=== PATIENT | male | born 1950 | race Caucasian/White ===

== ENCOUNTER → 2017-06-14 | Outpatient (CLI) | payer MEDICARE, OTHER, BC ==
[2017-06-14] MEDS: GADOBUTROL 10 MMOL/10 ML VIAL IV ×2 (11:32)
== END | disposition home or self-care (01) ==
LOC: KCIC MRI 10:41
DX: K76.0 Fatty (change of) liver, not elsewhere classified (principal); D18.09 Hemangioma of other sites
CPT/HCPCS: 74183; A9585

== ENCOUNTER → 2019-03-27 | Day surgery (SDC) | payer MEDICARE, OTHER, BC ==
[~2019-03-27] MED LIST: ALLO300T PO; ASPI-630 PO; ATOR40TA59 PO; ESOM20CA PO; IV RINGERS,LACTATED 1000ML 1,000 ML IV ONE; LIDOCAINE 1%/EPI 1:100,000 20 ML VIAL. INJ ONE; LOSA1TAB19 PO; MELO7.5T29 PO; METF500T16 PO; METO-247 PO; SIMV20TA3 PO; VALS1TAB3 PO
[2019-03-27 09:42] VITALS: BP 150/65
--- NOTE | 2019-03-27 11:05 | PDOC4 ---
Operative Note Operative Note Date: 03/27/2019 Preoperative diagnosis: Left flank lipoma Postoperative diagnosis: Same Procedure: Excision of left flank lipoma Surgeon: Fred Specimen: Left flank lipoma Dictation: Patient is 69-year-old male is complained of enlarging mass in his left flank. Procedure of excision of mass was explained to the patient detail risk benefits were also discussed including bleeding infection alternatives to this procedure also discussed the patient seemed to understand gave both verbal and written consent to have the procedure performed. Patient was taken to the minor his room placed in the left lateral decubitus position area around the mass was prepped and draped usual sterile fashion using ChloraPrep. Area over the mass was injected with 1% lidocaine with epinephrine once this was anesthetized incision was made 15 blade scalpel this carried down through subcutaneous tissue using 15 blade scalpel mass was sharply excised with Metzenbaum scissors mass was 9 x 9 cm appeared to be lipoma. The wound was then closed in 2 layers a deep layer running 3-0 Vicryl and the skin was approximate for septic and a Monocryl Mastisol Steri-Strips and island dressings were applied patient hard procedure well was discharged home in stable condition all sponge instrument needle counts listed as correct estimated blood loss 5 mL EVETTE METZ MD Mar 27, 2019 11:05
--- NOTE | 2019-03-30 17:06 | PATHOLOGY ---
[facility] Accession Number: [id number] . 01 Material submitted: . chest - LEFT CHEST LIPOMA. Modifiers: left . 01 Clinical history: . Left chest lipoma. . 02 Diagnosis: Segment of fibroadipose tissue, left chest: - Lipoma. (JPM:[facility]; 03/30/2019) QMS 03/30/2019 1410 Local . 02 Comment: There is no evidence of malignancy. . 02 Electronically signed: . Ladarius Trujillo MD, Pathologist NPI- [id number] . 01 Gross description: . Received in formalin labeled "Cesar Cortes, left chest lipoma" is an encapsulated yellow-goode lobulated soft tissue mass measuring 9.2 x 7.0 x 3.5 cm. The external surface is inked black. The specimen is sectioned to reveal a yellow-goode homogenous cut surface without hemorrhage or necrosis. [employer] sections are submitted in A1-A5. ([facility] [place]; 03/28/2019) [facility] 03/28/2019 08 Local . 02 Pathologist provided ICD-10: D17.1 . 02 CPT . 780917 Specimen Comment: A courtesy copy of this report has been sent to Specimen Comment: [phone], . Specimen Comment: Report sent to / DR SANDOVAL Performed at: 01 [facility] [address], [place] [id number] MD Noah Hardin MD Phone: [phone] Performed at: 02 [facility] [address] [place], [place] [id number] MD Ladarius Trujillo MD Phone: [phone]
== END ==
LOC: SURG 09:30
PROVIDERS: ATTEND Surgery
DX: D17.1 Benign lipomatous neoplasm of skin and subcutaneous tissue of trunk (principal); I11.9 Hypertensive heart disease without heart failure; E78.00 Pure hypercholesterolemia, unspecified; G47.30 Sleep apnea, unspecified; K21.9 Gastro-esophageal reflux disease without esophagitis; K76.0 Fatty (change of) liver, not elsewhere classified; M10.9 Gout, unspecified; E11.9 Type 2 diabetes mellitus without complications; Z86.010 Personal history of colon polyps; Z98.890 Other specified postprocedural states; Z87.442 Personal history of urinary calculi; Z72.89 Other problems related to lifestyle; Z79.84 Long term (current) use of oral hypoglycemic drugs
CPT/HCPCS: 21931; 88304; J3490